=== PATIENT | male | born 1985 | race Caucasian/White ===

== ENCOUNTER 2018-06-21 11:26 | Emergency (ER) | payer OTHER, SELFPAY ==
[2018-06-21 11:27] VITALS: BP 144/86; PULSE 82; RESP 18; TEMP 36.6; O2SAT 100; BMI 22.2
--- NOTE | 2018-06-21 11:40 | NURSING ---
NO OLD EKGS
[2018-06-21 11:42] VITALS: BP 140/69; PULSE 82; RESP 24; O2SAT 100
--- NOTE | 2018-06-21 12:03 | EKG12_ITS ---
Test Reason : CP Blood Pressure : / mmHG Vent. Rate : 085 BPM Atrial Rate : 085 BPM P-R Int : 170 ms QRS Dur : 098 ms QT Int : 358 ms P-R-T Axes : 085 094 037 degrees QTc Int : 426 ms Normal sinus rhythm Rightward axis Borderline ECG Confirmed by MC ANGELES, AG ([id number]), editor news ALESHA SARGENT ([id number]) on 06/24/2018 10:01:14 AM Referred By: TL Confirmed By:GA EBNTLEY MD
[2018-06-21 12:07] VITALS: BP 130/69; PULSE 77; RESP 14; O2SAT 100
[2018-06-21 12:13] LABS: Absolute Lymphocyte Count 1.41 X10^3/ul (0.83-4.51); Absolute Neutrophil Count 3.1 X10^3/uL (2.0-7.7); Basophil# 0.02 X10^3/uL; Basophil% 0.4 % (0-1); Eosinophil# 0.14 X10^3/uL; Eosinophils% 2.8 % (0-5); Hematocrit 44.3 % (40-54); Hemoglobin 15.1 g/dl (13.0-16.5); Lymphocyte # 1.41 X10^3/ul (4.0); Lymphocyte % 28.4 % (19-41); Mean Corp Hgb Conc 34.1 g/gl (32-36); Mean Corpuscular Hgb 31.1 pg (27.0-32.0); Mean Corpuscular Volume 91.3 fL (80-94); Mean Platelet Vol. 9.3 fl (6.2-12.0); Neutrophil % 62.4 % (47-70); POSITIVE COUNT NO; POSITIVE DIFFERENTIAL NO; POSITIVE MORPHOLOGY NO; Platelet Count 140 K/mm3 (150-450); RBC Distribution Width CV 12.6 % (11.6-14.6); RBC Distribution Width SD 41.8 fl (35.1-43.9); Red Blood Count 4.85 M/mm3 (4.6-6.2)
[2018-06-21 12:26] LABS: Anion Gap 7 (5-15); BUN 18 mg/dL (7-18); BUN/Creat Ratio 18.8 RATIO (10-20); Chloride 107 mmol/L (98-107); Creatinine, Serum 0.96 mg/dL (0.70-1.30); EST Glomerular Filtration Rate 97 mL/min (>60); Est Glom Filt Rate - Afr Amer 117 mL/min (>60); Estimated Creatinine Clearance 110.87 ml/min; Glucose 93 mg/dL (74-106); Potassium 4.2 mmol/L (3.5-5.1); Sodium Level 142 mmol/L (136-145)
--- NOTE | 2018-06-21 12:30 | ED.DCSUM_ITS ---
- ER Visit Summary Date of Service: 06/21/18 Chief Complaint: Chest pain History of Present Illness: The patient is a 32 M intermittent chest pain for the past week. Saw his PCP 4 days ago states ribs were out, was placed back in in the office. EKG in office negative, report d-dimer was less than 190. Had chest x-ray that was negative. Patient developed a globus sensation in his throat constant since yesterday morning 12 hours, he had indigestion symptoms yesterday evening also. No vomiting or diarrhea. No melena. No PE risk factors. No daily medicines. No family history of MIs at young age. No tobacco history. Physical Examination: General: Alert and oriented ?3, no acute distress HEENT: Normocephalic, atraumatic. Moist mucosa membranes Neck: supple, nontender. Cardiovascular: Regular rate and rhythm, no murmurs Respiratory: Normal breath sounds, symmetric, no distress Abdomen: Soft, nontender, nondistended Extremities: Nontender, no edema, pulses intact ?4 Neuro: no focal neurological deficits. Test Results: EKG sinus rate of [address] or T wave changes. Hemoglobin 15 creatinine 0.96. Troponin less than 0.015. Emergency Department Course and Treatment: Patient with atypical symptoms. Car diac workup negative. With indigestion and globus sensation given GI cocktail with moderate improvement. He will monitor for any melena he will be placed on omeprazole. Heart score is a 1. KAUR score 0. Follow-up with PCP. Signs and symptoms discussed return. All questions were answered. Treatment Plan: [] Disposition: Discharge Impression: 1. Atypical chest pain 2. Gastritis This note was generated with [employer] dictation software. It may contain incorrect words, spelling, and punctuation that were not noted in review of the chart prior to signing ED Disposition - Plan for ED Patient: Disposition: Home or Assisted Living Diagnosis: Atypical chest pain, Gastritis Instructions: ED Chest Pain Atypical Unkn Cause, ED Gastritis Prescriptions: Omeprazole 40 mg PO DAILY #30 capsule. Referrals: Renato Copeland PA [Primary Care Provider] - 3-5 Days
[2018-06-21] MEDS: Mag Hydrox/Al Hydrox/Simeth 30 ML UDC PO (12:55)
[2018-06-21 13:08] VITALS: BP 112/74; PULSE 75; RESP 22; O2SAT 98
== END 2018-06-21 13:10 | disposition home or self-care (01) ==
PROVIDERS: Emergency Provider Emergency Medicine; Family Provider Physician Assistant; PCP Physician Assistant
DX: K29.70 Gastritis, unspecified, without bleeding (principal); R07.89 Other chest pain
CPT/HCPCS: 80048; 84484; 85025; 93005; 99285; A4216